=== PATIENT | female | born 1995 | race Caucasian/White ===

== ENCOUNTER → 2023-08-28 16:13 | Outpatient (CLI) | payer OTHER, MEDICAID, SELFPAY ==
[2023-08-28 19:04] LABS: Urine N gonorrhoeae NOT DETECTED
[2023-08-28 19:19] LABS: Urine Chlamydia NOT DETECTED
== END ==
PROVIDERS: Visit Provider Nurse Practitioner Family
DX: N89.8 Other specified noninflammatory disorders of vagina (principal)
CPT/HCPCS: 81002; 87077; 87086; 87210; 87491; 87591

== ENCOUNTER → 2023-10-04 09:39 | Outpatient (CLI) | payer OTHER, MEDICAID, SELFPAY | PROVIDERS: Visit Provider Nurse Practitioner Family | DX: N39.0 Urinary tract infection, site not specified (principal) | CPT/HCPCS: 81002; 87077; 87086; 87186; 87210 ==

== ENCOUNTER → 2023-11-01 09:41 | Outpatient (CLI) | payer OTHER, MEDICAID, SELFPAY | PROVIDERS: PCP Family Medicine; Visit Provider Physician Assistant Surgical | DX: R35.0 Frequency of micturition (principal); N89.8 Other specified noninflammatory disorders of vagina | CPT/HCPCS: 81002; 87086; 87210 ==

== ENCOUNTER → 2023-11-07 17:39 | Outpatient (CLI) | payer OTHER, MEDICAID, SELFPAY | PROVIDERS: PCP Family Medicine; Visit Provider Physician Assistant Medical | DX: N61.0 Mastitis without abscess (principal); N76.5 Ulceration of vagina | CPT/HCPCS: 87070; 87075; 87077; 87147; 87186; 87205; 87252 ==

== ENCOUNTER → 2023-12-17 17:40 | Outpatient (CLI) | payer OTHER, MEDICAID, SELFPAY ==
[2023-12-17 20:20] LABS: Urine N gonorrhoeae NOT DETECTED
[2023-12-17 20:22] LABS: Urine Chlamydia NOT DETECTED
== END ==
PROVIDERS: PCP Family Medicine; Visit Provider Physician Assistant Surgical
DX: N89.8 Other specified noninflammatory disorders of vagina (principal); R35.0 Frequency of micturition; N94.9 Unspecified condition associated with female genital organs and menstrual cycle
CPT/HCPCS: 87086; 87210; 87491; 87591

== ENCOUNTER → 2023-12-27 12:09 | Outpatient (CLI) | payer OTHER, MEDICAID, SELFPAY ==
[2024-01-01 06:07] LABS: Chlamydia trachomatis Negative (Negative); Mycoplasma genitalium Negative (Negative); Neisseria gonorrhoeae Negative (Negative)
== END ==
PROVIDERS: PCP Family Medicine; Visit Provider Family Medicine
DX: R35.0 Frequency of micturition (principal); N89.8 Other specified noninflammatory disorders of vagina; N94.9 Unspecified condition associated with female genital organs and menstrual cycle
CPT/HCPCS: 81002; 87210; 87491; 87563; 87591